=== PATIENT | male | born 1975 | race Two or more races ===

== ENCOUNTER 2024-06-03 15:15 | Inpatient (IN) | payer MEDICAID, SELFPAY ==
[2024-06-03] VITALS (8 sets, daily range): BP systolic 171–213; BP diastolic 96–126; PULSE 75–80; RESP 16–20; TEMP 36.8–37.7; O2SAT 91–97; BMI 34.9
--- NOTE | 2024-06-03 16:05 | XR_ITS ---
Examination: Abdomen sonogram, Limited Date and time of exam: June 03, 2024 1613 hrs. Indications: Epigastric pain nausea vomiting constipation beginning 2 days ago Technique: Real-time gant scale transabdominal sonographic images of the upper abdomen obtained. Findings: Multiple gallstones Abnormal thickening of the gallbladder wall 0.5 cm Common bile duct 0.6 cm Pancreatic head 3.2 cm Liver 19.1 cm fatty liver no focal liver lesions Normal hepatopedal portal venous flow Patent IVC Impression: Acute calculus cholecystitis pattern Enlarged common bile duct incompletely visualized Consider MRCP follow-up
--- NOTE | 2024-06-03 16:05 | XR_ITS ---
Examination: PA lateral chest 2 views Technique: Upright PA lateral chest 2 views Exam date and time: June 03, 2024 1631 hrs. Indications: Chest pain abdominal pain and sweating diaphoresis beginning 2 days ago. Findings: Normal heart size Ectatic thoracic aorta. No pneumonia or pulmonary edema Moderate thoracic spondylosis Impression: No active disease
--- NOTE | 2024-06-03 16:05 | XR_ITS ---
Examination: CT abdomen and pelvis without contrast. Coronal 3-D reconstructions. Sagittal 2-D reconstructions. Date and time of exam: June 03, 2024 1646 hrs. Indications: Onset epigastric pain beginning 2 days ago CTDI: vol (mGy): 11.7 DLP: (mGycm): 725 Technique: Axial images of the abdomen have been obtained, 3 mm slice thickness Intravenous contrast material has not been administered. Low dose protocols were performed. One or more of the following dose reduction techniques were used; automated exposure control, adjustment of the mA and/or KV according to patient size, use of iterative reconstruction technique. Findings: Diffuse fatty infiltration throughout the liver Gallstones, abnormal gallbladder wall thickening and edema Spleen is not enlarged No pancreatic or adrenal mass 2 mm soft calcification lower pole left kidney, coronal image 90 No hydronephrosis or ureteral calculi Aorta normal size Normal appendix No bowel obstruction Colonic diverticulosis, no diverticulitis There is rectal wall thickening up to 10 mm, axial image 227, clinical correlation advised Transverse prostate dimension 4.5 cm Intact urinary bladder Moderate disc narrowing posteriorly L5-S1 Impression: Recommend gallbladder sonography follow-up to confirm acute calculus cholecystitis 2 mm nonobstructing lower pole left renal calculus Rectal wall thickening up to 10 mm, consider proctitis, other etiologies not excluded, clinical correlation advised
--- NOTE | 2024-06-03 16:05 | EKG_ITS ---
[facility] Test Date: 2024-06-03 Pat Name: DEBBIE PAVON Department: Room: - Gender: Male [place]: : 1975 Requested By: Abrahan Smith (RAYNE) Order Number: [id number] Reading MD: Abrahan Smith (BEVEL OPERATOR) Measurements Intervals [place] Rate: 86 P: 4 SD: 193 QRS: -3 QRSD: 118 T: 25 QT: 387 QTc: 464 Interpretive Statements SINUS RHYTHM MODERATE VOLTAGE CRITERIA FOR LVH, CONSIDER NORMAL VARIANT [MEETS CRITERIA IN ONE OF: R(aVL), S(V1), R(V5), R(V5/V6)+S(V1)] INFERIOR MYOCARDIAL INFARCTION , PROBABLY OLD [40+ ms Q WAVE AND/OR ST/T ABNORMALITY IN II/aVF] No previous ECG available for comparison /store/S0/[id number].pdf
--- NOTE | 2024-06-03 16:06 | PD.EDRME ---
Rapid Medical Screening Exam RME Arrival date/time: 06/03/24 15:15 49-year-old male presents emergency department complaint of abdominal pain and constipation Chief Complaint: Abdominal Pain Time Seen by Provider: 06/03/24 15:58 Vital signs: Vital Signs Temperature 98.2 F 06/03/24 15:51 Pulse Rate 77 06/03/24 15:51 Respiratory Rate 20 06/03/24 15:51 Blood Pressure 171/96 H 06/03/24 15:51 Pulse Oximetry (%) 97 06/03/24 15:51 Oxygen Delivery Method Room Air 06/03/24 15:51
[2024-06-03] MEDS: DOCUSATE SOD 100 MG CAPSULE PO (16:45)
[2024-06-03] MEDS: HYDROcodone/APAP 5/325 TABLET 1 TAB PO (16:45)
[2024-06-03 16:57] LABS: Basophils % (Auto) 0 % (0-2.5); Eosinophils % (Auto) 0 % (0-10); Hematocrit 42.7 % (41.0-53.0); Hemoglobin 14.7 g/dL (13.5-16.0); Immature Granulocytes % (Auto) 0 % (0-0); Immature Granulocytes Auto 0.07 Thou/mm3 (0.00-0.00); Lymphocytes # (Auto) 1.9 Thou/mm3 (1.0-4.8); Lymphocytes % (Auto) 11 % (10-50); Mean Corpuscular HGB Conc 34.4 g/dl (31.0-37.0); Mean Corpuscular Hemoglobin 27.7 pg (25.0-35.0); Mean Corpuscular Volume 80 fL (80-100); Monocytes % (Auto) 6 % (0-12); Neutrophils # (Auto) 14.1 Thou/mm3 (1.8-7.7); Neutrophils % (Auto) 82 % (37-80); Nucleated Red Blood Cell % 0 /100 WBC (0); Platelet Count 341 Thou/mm3 (140-440); RDW Standard Deviation 37.4 fL (35.1-43.9); Red Blood Count 5.31 Miln/mm3 (4.50-5.90); White Blood Count 17.2 Thou/mm3 (3.8-10.6)
[2024-06-03 17:16] LABS: Alanine Aminotransferase 34 U/L (10-49); Albumin, Serum 5.1 gm/dL (3.5-5.0); Albumin/Globulin Ratio 1.6 (1.2-2.2); Alkaline Phosphatase 137 U/L (46-116); Anion Gap 9 (7-16); Aspartate Amino Transferase 10 U/L (0-34); BUN/Creatinine Ratio 9 Ratio (12-20); Bilirubin,Total 0.7 mg/dL (0.3-1.2); Blood Urea Nitrogen 7 mg/dL (9-23); Carbon Dioxide 29.6 mMol/L (20.0-31.0); Chloride 96 mMol/L (98-107); Creatinine (Component) 0.8 mg/dL (0.6-1.3); Estimated Creatinine Clearance 130.8 mL/min (>60); Globulin 3.1 gm/dL (2.3-3.5); Glucose 145 mg/dL (74-106); Lipase 24 U/L (12-53); Osmolality,Calculated 271 (275-295); Potassium 3.7 mMol/L (3.4-5.1); Sodium 135 mMol/L (136-145); Total Protein 8.2 gm/dL (5.7-8.2); Troponin I < 0.020 ng/mL (0.0-0.045); eGFR > 60 See Note
[2024-06-03 17:17] LABS: Collection Type, Urine Clean Catch; Squamous Epithelial Cell,Urine 0 /hpf (0-5)
[2024-06-03 17:23] LABS: Bilirubin,Urine Negative (Negative); Blood,Urine Negative (Negative); Clarity,Urine Clear (Clear/Hazy); Color,Urine Lt-Yellow (Lt Yel-Yel); Glucose, Urine Negative (Negative); Ketones,Urine Trace (Negative); Leukocyte Esterase,Urine Negative (Negative); Nitrite,Urine Negative (Negative); Protein,Urine Trace (Neg - Trace); RBC,Urine 1 /hpf (0-3); Specific Gravity,Urine 1.021 (1.001-1.035); Urobilinogen,Urine Negative mg/dL (0.0-1.0); WBC,Urine 2 /hpf (0-5)
[2024-06-03 17:30] LABS: Amphetamine/Methamp Scrn,U Negative (Negative); Barbiturate Screen,Urine Negative (Negative); Benzodiazepines Screen,Urine Negative (Negative); Benzoylecgonine Screen, Ur Negative (Negative); Fentanyl Screen,Urine Negative (Negative); Opiate Screen,Urine Negative (Negative); THC Screen,Urine Negative (Negative)
--- NOTE | 2024-06-03 20:13 | PD.EDABDPN ---
ED Abdominal Pain RME/HPI General Chief Complaint: Abdominal Pain Stated complaint: ABD PAIN/CONSTIPATION/SWEATING x 2 DAYS Time seen by provider: 06/03/24 15:58 Arrival date/time: 06/03/24 15:15 Limitations: no limitations RME / HPI RME / HPI narrative: 06/03/24 15:15 49-year-old male presents emergency department complaint of abdominal pain and constipation -------- Dr. Amor'beto Main ED Evaluation: 49yo male presents to the ED for a chief complaint of right-sided abdominal pain. Patient states his pain radiates to his back. Patient states he ate last night at 2030 and he started having abdominal pain after. He reports associated nausea. Denies any vomiting, diarrhea, fever, chills or any other associated symptoms. No known allergies. Related Data Previous Rx's ?Medication ?Instructions ?Recorded hydralazine 25 mg tablet 25 mg PO BID #60 tabs 04/19/21 lisinopril 40 mg tablet 40 mg PO QDAY #30 tabs 04/19/21 metformin 500 mg tablet 1,000 mg (2 x 500 mg) PO BID #60 04/19/21 tabs omeprazole 20 mg tablet,delayed 20 mg PO QDAY #30 tabs 04/19/21 release Allergies Allergy/AdvReac Type Severity Reaction Status Date / Time No Known Allergies Allergy Verified 06/03/24 15:19 Review of Systems Review of Systems Systems Reviewed: All systems reviewed, normal except as documented Past Medical History Past Medical History CARDIAC: Negative Cardiac Disorders or Congestive Heart Failure RESPIRATORY: Negative Chronic Obstructive Pulmonary Disease (COPD) or Asthma GENITOURINARY: Negative Renal Disease ENDOCRINE: Negative Diabetes Mellitus Type 1 or Diabetes Mellitus Type 2 HEMATOLOGIC: Negative Sickle Cell Disease Social History SMOKING STATUS: Never smoker SUBSTANCE USE: does not use ED Exam General Limitations: Present no limitations General appearance: Present alert and in no apparent distress Head Head exam: Present atraumatic Eye Eye exam: Present normal appearance, PERRL and EOMI ENT ENT exam: Present normal exam, normal oropharynx and mucous membranes moist Neck Neck exam: Present normal inspection, full ROM and trachea midline Chest Chest inspection: Present normal inspection and symmetric chest wall rise Respiratory Respiratory exam: Present normal lung sounds bilaterally Cardiovascular Cardiovascular exam: Present regular rate, normal rhythm and normal heart sounds Abdominal Exam Abdominal exam: Present soft and normal bowel sounds; Absent guarding, rebound or Harris's sign Extremities Exam Extremities exam: Present normal inspection and full ROM Back Exam Back exam: Present normal inspection and full ROM Neurological Exam Neurological exam: Present alert, oriented X3 and CN II-XII intact Psychiatric Psychiatric exam: Present normal affect and normal mood Skin Skin exam: Present warm, dry, intact and normal color Course Course Course Narrative: Placed in bed [address] Hardy. Zosyn is started. Quality Measures none Orders Category Date Time Status COVID-19 Screening Questionnaire NOW Care 06/03/24 20:41 Active Decision to Admit X1 Care 06/03/24 20:40 Active EKG (ED ONLY) *Do not use* NOW Care 06/03/24 16:[address] abdomen pelvis wo con Stat Exams 06/03/24 16:05 Completed EKG (ED Only) Stat Exams 06/03/24 16:05 Draft US gall bladder Stat Exams 06/03/24 16:05 Completed XR chest 2V Stat Exams 06/03/24 16:05 Completed CBC Stat Lab 06/03/24 16:49 Completed Comprehensive Metabolic Panel Stat Lab 06/03/24 16:49 Completed Drug Screen,Urine Stat Lab 06/03/24 17:00 Completed Lipase Stat Lab 06/03/24 16:49 Completed Troponin I Stat Lab 06/03/24 16:49 Completed Urinalysis Stat Lab 06/03/24 17:00 Completed Docusate Sod [Colace] Med 06/03/24 16:05 Discontinued 100 mg PO X1 ONE HYDROcodone*/APAP 5/325 [[place] 5/325] Med 06/03/24 16:05 Discontinued 1 tab PO X1 ONE Morphine Inj Med 06/03/24 20:41 Discontinued 4 mg IVP X1 ONE Ondansetron Inj [Zofran Inj] Med 06/03/24 20:41 Discontinued 4 mg IV X1 ONE Piper/Tazo Inj [Zosyn Inj] 3.375 gm Med 06/03/24 20:40 Pending Sodium Chloride 0.9% (P) [Ns 0.9% (P)] 50 ml IV Q6HR Piper/Tazo Inj [Zosyn Inj] 3.375 gm Med 06/03/24 20:45 Discontinued Sodium Chloride 0.9% (P) [Ns 0.9% (P)] 50 ml IV X1 Sodium Chloride 0.9% 1000 ml [Ns] 1,000 ml Med 06/03/24 20:40 Discontinued IV 999 mls/hr Reevaluation(s) Reevaluation #1: Patient with improved pain. Patient states he is not a diabetic. Time: 21:45 Vital Signs Vital signs: Vital Signs Temperature 98.2 F 06/03/24 15:51 Pulse Rate 77 06/03/24 15:51 Respiratory Rate 20 06/03/24 15:51 Blood Pressure 171/96 H 06/03/24 15:51 Pulse Oximetry (%) 97 06/03/24 15:51 Oxygen Delivery Method Room Air 06/03/24 15:51 Abdominal Pain MDM MDM Narrative MDM Narrative:: 49-year-old man presenting with history of cholelithiasis back in 2020 presenting with 3 days of abdominal pain. No evidence of cholangitis. Patient data External records reviewed:: [facility] previous records (Per chart review, patient was seen here on 04/19/21 for epigastric pain.) Clinical information provided by:: patient Social determinants that could affect healthcare access:: none Patient has the following chronic illnesses:: none How is presenting disease/condition affected by chronic disease/condition?: no chronic disease Evaluation data The following diagnostics were reviewed and interpreted by me:: lab results, radiology exam(s) and EKG tracing(s) Lab and/or radiology exams considered but not ordered:: none Interpretation Summary: WBC count is elevated at 17.2, CMP is normal, troponin is normal, Lipase is normal, UA is unremarkab EKG 1611, 86, moderate lvh, old q wave lead iii, qtc 387, possible old infarct, same as 2020 Medications / Prescriptions Medications or Prescriptions considered but not ordered:: none Medication administrations:: Medication Administration History Piperacillin Sod/Tazobactam (Sod 3.375 gm/ Sodium Chloride) 50 mls @ 100 mls/hr IV Q6HR JOSE Stop: 06/10/24 20:39 Sodium Chloride (Ns) 1,000 mls @ 100 mls/hr IV .Q10H ONE Stop: 06/04/24 06:59 Morphine Sulfate (Morphine Sulf Inj 10 Mg/Ml Vial) 5 mg IM Q4HR PRN PRN Reason: PAIN SCALE 4-6 (Moderate Stop: 06/08/24 20:48 Ondansetron HCl (Ondansetron Inj 2 Mg/Ml Inj 2 Ml) 4 mg IV Q4HR PRN PRN Reason: NAUSEA OR VOMITING Stop: 07/03/24 20:48 Discontinued Medications Hydrocodone Bitart/Acetaminophen (Hydrocodone/Apap 5/325 Tablet) 1 tab PO X1 ONE Stop: 06/03/24 16:06 Last Admin: 06/03/24 16:45 Dose: 1 tab Documented By: Docusate Sodium (Docusate Sod 100 Mg Capsule) 100 mg PO X1 ONE; Protocol Stop: 06/03/24 16:06 Last Admin: 06/03/24 16:45 Dose: 100 mg Documented By: Sodium Chloride (Ns) 1,000 mls @ 999 mls/hr IV .Q1H1M ONE Stop: 06/03/24 21:40 Piperacillin Sod/Tazobactam (Sod 3.375 gm/ Sodium Chloride) 50 mls @ 100 mls/hr IV X1 ONE Stop: 06/03/24 21:14 Morphine Sulfate (Morphine Sulf Inj 10 Mg/Ml Vial) 4 mg IVP X1 ONE Stop: 06/03/24 20:42 Ondansetron HCl (Ondansetron Inj 2 Mg/Ml Inj 2 Ml) 4 mg IV X1 ONE; Protocol Stop: 06/03/24 20:42 see above Consultations Consultation(s) initiated? (list below): Yes Consultation #1 (Physician, Specialty, Details): Discussed case with [Dr. Hardy] from [general surgery] regarding [consultation]. Discussed patients ED course, exam findings, labs, and radiology results. States the patient's gallbladder needs to be removed and agrees to admit the patient. Time: 20:40 Diagnosis Differential diagnosis abdominal pain: acute appendicitis and other (cholelithiasis, cholecystitis) Most likely diagnosis given after review of the tests above:: see below Admission Indicated Admission indicated?: indicated Admission Request Was there a request for admission?: Yes Admission Attestation Admission request attestation: Discussed case with [] from Hospitalist service regarding admission. Discussed patients ED course, exam findings, labs, and radiology results. The Hospitalist [agrees,declines] to accept the patient for admission. Disposition Plan Disposition Plan: Admit Discharge Plan Plan Patient Disposition: HOME (Self Care) Patient condition on transfer: Stable Problem List Clinical Impression: Acute cholecystitis
--- NOTE | 2024-06-03 20:54 | PD.SURHP ---
HPI Date of Admission 06/03/2024 Chief Complaint Chief Complaint: Patient is admitted with the complaints of acute calculus cholecystitis HPI History of present was revealed that the patient was in his usual health until 3 days ago when he started having pain in the epigastric region radiating to the back. Patient had no vomiting but he was nauseated and could not eat well. He has had a similar pain 3 years ago and came to the emergency room and was told that he had gastritis. Patient gives history of gallstones and his mother. Patient denies any history of fever or chills. Patient's past medical history consist of hypertension and obesity Past Medical History Past Medical History CARDIAC: Negative Cardiac Disorders or Congestive Heart Failure RESPIRATORY: Negative Chronic Obstructive Pulmonary Disease (COPD) or Asthma GENITOURINARY: Negative Renal Disease ENDOCRINE: Negative Diabetes Mellitus Type 1 or Diabetes Mellitus Type 2 HEMATOLOGIC: Negative Sickle Cell Disease Social History SMOKING STATUS: Never smoker SUBSTANCE USE: does not use Meds Home Medications and Allergies Allergies Allergy/AdvReac Type Severity Reaction Status Date / Time No Known Allergies Allergy Verified 06/03/24 15:19 Exam Vital Signs Temp Pulse Resp BP Pulse Ox O2 Del Method 98.2 F 77 20 171/96 H 97 Room Air 06/03/24 15:51 06/03/24 15:51 06/03/24 15:51 06/03/24 15:51 06/03/24 15:51 06/03/24 15:51 Narrative Exam Physical examination revealed an obese 49-year-old male who is 5 foot 8 inches tall weighing 230 pounds with BMI of 35 patient's blood pressure was high at 171/96 Routine Abdominal Exam Comments: Examination abdomen showed definite tenderness in the epigastric region and some tenderness in the right upper quadrant with a positive Harris sign Results Results: Laboratory Laboratory Narrative: Patient's laboratory workup showed leukocytosis of 17,000 with a shift to the left Results: Imaging Imaging narrative: Ultrasound showed cholelithiasis with slight thickening of the gallbladder wall Assessment & Plan Additional Assessment Additional comments: Impression acute calculus cholecystitis Hypertension Morbid obesity Plan Plan: Patient will require surgical intervention because of this ongoing pain for 3 days. At the present time patient has all the telltale signs of acute cholecystitis. He will be admitted and started on antibiotics Zosyn 3.375 every 8 hours. Surgery will be scheduled tomorrow. This will be done laparoscopically. This was explained to the patient and his and they are agreeable Quality Measures Quality Measures none
--- NOTE | 2024-06-03 21:24 | PC.NURSE ---
NO BLOOD CULTURES ORDERS PER DR. ROMO.
[2024-06-03] MEDS: SODIUM CHLORIDE 0.9% 1000 ML 1,000 ML 999 ML IV (22:08)
[2024-06-03] MEDS: ONDANSETRON INJ 2 MG/ML INJ 2 ML 4 MG IV (22:12)
[2024-06-03] MEDS: PIPER/TAZO INJ 3.375 GM in SODIUM CHLORIDE 0.9% (P) 50 ML IV (22:14)
[2024-06-03] MEDS: MORPHINE SULF INJ 10 MG/ML VIAL 4 MG IVP (22:14)
--- NOTE | 2024-06-03 22:34 | PC.NURSE ---
Dr. French notified via telephone regarding blood pressure of 201/116, per Dr. French to contact hospitalist for management of blood pressure. Dr. Gunter at bedside and spoke with patient, states will into blood pressure medication orders.
--- NOTE | 2024-06-03 22:41 | PD.RESCONSUL ---
HPI Data of Consult Requesting Physician: Onur French MD Admitting Provider: Onur French MD Attending Provider: Onur French MD Primary Care Provider: Simba Landrum MD Consult Narrative Reason for consult: Hypertensive urgency History of present illness: Patient is a 49-year-old Chilean-speaking male with past medical history of hypertension who presented to the ED on 06/03/2024 with 3 days of epigastric and right upper quadrant pain radiating to the back with associated nausea. ED workup revealed leukocytosis of 17.2 and gallbladder US showed acute calculus cholecystitis pattern. Patient was admitted by General Surgery for cholecystectomy. While in ED patient's BP was noted to be elevated in the 200s/100s. Patient had not received any antihypertensives thus far. Hospitalist team was consulted for management of hypertensive urgency. Patient endorses mild headache however notes he has not eaten all day. Otherwise denies any chest pain, shortness of breath, weakness, or vision changes. The patient endorses a history of hypertension and previously was on antihypertensives however has not been taking any medications for at least 3 months. He denies any other medical problems, denies history of diabetes. Review of Systems Review of systems otherwise negative except what is mentioned above. cc:: cc: Onur French MD Past Medical History Past Medical History Comments PMH COMMENT: Past Medical History: Hypertension Family History: Positive for gallstones in mother Surgical History: Right index finger distal phalanx amputation Social History: Denies history of smoking, occasional alcohol use, denies recreational drug use Current Medications: None Allergies: No known drug allergies Exam Vital Signs Temp Pulse Resp BP Pulse Ox O2 Del Method 98.2 F 76 16 201/116 H 97 Room Air 06/03/24 15:51 06/03/24 22:26 06/03/24 22:26 06/03/24 22:26 06/03/24 22:26 06/03/24 22:26 Narrative Exam Physical Exam General: Awake and in no acute distress. Conversational and non-toxic appearing. HEENT: Normocephalic, atraumatic, mucous membranes moist. Heart: Regular rate and rhythm, no murmurs. Lungs: Clear to auscultation with no wheezing or crackles. Abdomen: Soft, nondistended, positive for right upper quadrant tenderness, positive bowel sounds. ?No guarding or rebound tenderness. Neurologic: Alert and oriented x3, no gross neurological deficit, and patient able to move all 4 extremities. Extremities: No edema. Skin: No rash or ecchymoses. Results Labs 06/03/24 16:49 06/03/24 16:49 Labs: Short CBC 06/03/24 Range/Units 16:49 WBC 17.2 H (3.8-10.6) Thou/mm3 Hgb 14.7 (13.5-16.0) g/dL Hct 42.7 (41.0-53.0) % Plt Count 341 (140-440) Thou/mm3 BMP 06/03/24 16:49 Sodium 135 L Potassium 3.7 Chloride 96 L Carbon Dioxide 29.6 BUN 7 L Creatinine 0.8 Glucose 145 H Calcium 10.0 Cardiac Enzymes 06/03/24 Range/Units 16:49 Troponin I < 0.020 (0.0-0.045) ng/mL Liver Function 06/03/24 Range/Units 16:49 Total Bilirubin 0.7 (0.3-1.2) mg/dL AST 10 (0-34) U/L ALT 34 (10-49) U/L Alkaline Phosphatase 137 H (46-116) U/L Albumin 5.1 H (3.5-5.0) gm/dL Urine 06/03/24 Range/Units 17:00 Urine Color Lt-Yellow (Lt Yel-Yel) Urine Clarity Clear (Clear/Hazy) Urine pH 7.0 (5.0-7.0) Ur Specific [place] 1.021 (1.001-1.035) Urine Protein Trace (Neg - Trace) Urine Glucose (UA) Negative (Negative) Quality Measures Quality Measures none Medications Home Medications and Allergies Home Medications ?Medication ?Instructions ?Recorded ?Confirmed ?Type No Known Home Medications 06/04/24 06/04/24 History Allergies Allergy/AdvReac Type Severity Reaction Status Date / Time No Known Allergies Allergy Verified 06/03/24 15:19 Visit Medications Hydralazine HCl (Hydralazine Hcl 25 Mg Tablet) 25 mg PO BID JOSE Stop: 07/03/24 22:44 Piperacillin Sod/Tazobactam (Sod 3.375 gm/ Sodium Chloride) 50 mls @ 100 mls/hr IV Q6HR JOSE Stop: 06/10/24 20:39 Sodium Chloride (Ns) 1,000 mls @ 100 mls/hr IV .Q10H ONE Stop: 06/04/24 06:59 Lisinopril (Lisinopril 20 Mg Tablet) 40 mg PO QDAY JOSE Stop: 07/03/24 22:39 Morphine Sulfate (Morphine Sulf Inj 10 Mg/Ml Vial) 5 mg IM Q4HR PRN PRN Reason: PAIN SCALE 4-6 (Moderate Stop: 06/08/24 20:48 Ondansetron HCl (Ondansetron Inj 2 Mg/Ml Inj 2 Ml) 4 mg IV Q4HR PRN PRN Reason: NAUSEA OR VOMITING Stop: 07/03/24 20:48 Discontinued Medications Hydrocodone Bitart/Acetaminophen (Hydrocodone/Apap 5/325 Tablet) 1 tab PO X1 ONE Stop: 06/03/24 16:06 Last Admin: 06/03/24 16:45 Dose: 1 tab Docusate Sodium (Docusate Sod 100 Mg Capsule) 100 mg PO X1 ONE; Protocol Stop: 06/03/24 16:06 Last Admin: 06/03/24 16:45 Dose: 100 mg Sodium Chloride (Ns) 1,000 mls @ 999 mls/hr IV .Q1H1M ONE Stop: 06/03/24 21:40 Last Admin: 06/03/24 22:08 Dose: 999 mls/hr Piperacillin Sod/Tazobactam (Sod 3.375 gm/ Sodium Chloride) 50 mls @ 100 mls/hr IV X1 ONE Stop: 06/03/24 21:14 Last Admin: 06/03/24 22:14 Dose: 100 mls/hr Morphine Sulfate (Morphine Sulf Inj 10 Mg/Ml Vial) 4 mg IVP X1 ONE Stop: 06/03/24 20:42 Last Admin: 06/03/24 22:14 Dose: 4 mg Ondansetron HCl (Ondansetron Inj 2 Mg/Ml Inj 2 Ml) 4 mg IV X1 ONE; Protocol Stop: 06/03/24 20:42 Last Admin: 06/03/24 22:12 Dose: 4 mg Assessment & Plan Plan 49-year-old Chilean-speaking male with past medical history of hypertension who was admitted by General Surgery for cholecystectomy. Hospitalist team was consulted for management of hypertensive urgency. #Hypertensive urgency #History of essential hypertension On admission patient had BP ranging 171/96 to 213/122. Patient with history of hypertension however endorses not taking meds for the last 3 months. Does not know the names of prior meds. Patient is most likely hypertensive secondary to pain and also has longstanding untreated hypertension, likely is accustomed to high BPs at home. Previous documentation shows history of prescriptions for lisinopril and hydralazine. Will restart oral antihypertensives. -Started amlodipine 10 mg qday -Started lisinopril 40 mg qday -Started hydralazine 25 mg BID -Hydralazine 10 mg IV prn -Pain control per General Surgery Patient plan of care was discussed with the attending physician, Dr. Gunter. Isa Christianson, PGY-2 Attending Provider Attestation/Addendum I discussed with and supervised the resident physician who took care of this patient. I agree with the assessment and plan as above. The patient will be comanaged by the hospitalist group for uncontrolled blood pressure. Patient denies chest pain or shortness of breath no dizziness or lightheadedness. He was initially admitted by Dr. Hardy for surgery.
[2024-06-03] MEDS: Lisinopril 20 MG TABLET 40 MG PO (23:05)
[2024-06-03] MEDS: hydrALAZINE HCL 25 MG TABLET PO (23:05)
[2024-06-03] MEDS: SODIUM CHLORIDE 0.9% 1000 ML 1,000 ML 100 ML IV (23:09)
[2024-06-03 23:39] LABS: Alanine Aminotransferase 33 U/L (10-49); Albumin, Serum 5.2 gm/dL (3.5-5.0); Alkaline Phosphatase 133 U/L (46-116); Aspartate Amino Transferase 13 U/L (0-34); Bilirubin,Direct 0.2 mg/dL (0.0-0.3); Bilirubin,Total 0.7 mg/dL (0.3-1.2); Total Protein 8.2 gm/dL (5.7-8.2)
[2024-06-03] MEDS: hydrALAZINE INJ 20 MG/ML VIAL 10 MG IV (23:54)
[2024-06-04] VITALS (14 sets, daily range): BP systolic 92–177; BP diastolic 62–101; PULSE 86–98; RESP 15–20; TEMP 36.1–37.5; O2SAT 91–98; BMI 35.0
--- NOTE | 2024-06-04 01:14 | PC.NURSE ---
seen and examined by Dr. Christianson, with Cari moody as assistant wrestling coach. Tequila() at bedside.
[2024-06-04] MEDS: MORPHINE SULF INJ 10 MG/ML VIAL 5 MG IVP (01:43)
[2024-06-04] MEDS: SODIUM CHLORIDE 0.9% 1000 ML 1,000 ML 100 ML IV ×2 (02:58→17:59)
[2024-06-04 05:57] LABS: Basophils # (Auto) 0.1 Thou/mm3 (0.0-0.2); Basophils % (Auto) 1 % (0-2.5); Eosinophils # (Auto) 0.1 Thou/mm3 (0.0-0.5); Eosinophils % (Auto) 0 % (0-10); Hemoglobin 13.3 g/dL (13.5-16.0); Immature Granulocytes % (Auto) 0 % (0-0); Immature Granulocytes Auto 0.06 Thou/mm3 (0.00-0.00); Lymphocytes # (Auto) 2.7 Thou/mm3 (1.0-4.8); Lymphocytes % (Auto) 17 % (10-50); Mean Corpuscular HGB Conc 34.1 g/dl (31.0-37.0); Mean Corpuscular Hemoglobin 27.8 pg (25.0-35.0); Mean Corpuscular Volume 82 fL (80-100); Monocytes # (Auto) 1.5 Thou/mm3 (0.0-0.8); Monocytes % (Auto) 10 % (0-12); Neutrophils # (Auto) 11.2 Thou/mm3 (1.8-7.7); Neutrophils % (Auto) 72 % (37-80); Nucleated Red Blood Cell % 0 /100 WBC (0); Platelet Count 294 Thou/mm3 (140-440); RDW Standard Deviation 38.7 fL (35.1-43.9); Red Blood Count 4.78 Miln/mm3 (4.50-5.90); White Blood Count 15.5 Thou/mm3 (3.8-10.6)
[2024-06-04] MEDS: PIPER/TAZO INJ 3.375 GM in SODIUM CHLORIDE 0.9% (P) 50 ML IV (06:24)
[2024-06-04] MEDS: amLODIPine BESYLATE 5 MG TABLET 10 MG PO (06:52)
[2024-06-04] MEDS: Lisinopril 20 MG TABLET 40 MG PO (08:41)
[2024-06-04] MEDS: hydrALAZINE HCL 25 MG TABLET PO ×2 (08:41→21:06)
--- NOTE | 2024-06-04 11:52 | PC.SS ---
Merlin Bhatia is 49 year old male. SS met with patient at bedside to complete initial assessment and to discuss discharge planning. Patient appeared to be alert and oriented. Patient confirmed demographic information she lives with . Patient reports his , Tequila Hernandez is surrogate decision maker [phone] . Pt states prior to hospitalization he is able to complete all ADL?s independently. Pts PCP is Dr. Simba Landrum. Pharmacy of choice is [facility]. Patient will return home, family will provide transportation. DC Plan: Home Next of Kin: , Tequila Hernandez PCP: Dr. Simba Landrum
--- NOTE | 2024-06-04 12:05 | ESPR_ITS ---
<Statement entered by Jazmine Tran MD - 06/04/24 13:51> I discussed with and supervised my co-resident involved in the care of this patient. I agree with the assessment and plan as documented above. Medicine team consulted for blood pressure management. Patient seen and examined at bedside. Going for surgery today. Amloidpine 10mg, hydralazine 25mg, lisinopril 40mg with hydralazine iv prn. Pain control per primary Jazmine Tran MD PGY-3 Documentation for date of: 06/04/24 Subjective Subjective Interval history: Alfonso Bhatia is a 49-year-old Danish-speaking male with a PMHx of hypertension who presented to the ED with 3 days of epigastric and RUQ pain radiating to the back with associated nausea. ED workup revealed leukocytosis of 17.2 and gallbladder US showed acute calculus cholecystitis pattern. Admitted by General Surgery for cholecystectomy and consulted internal medicine for management of hypertensive urgency. In ED, BP was 200s/100s and did not receive antihypertensives thus far. Hospitalist team consulted for management of hypertensive urgency. Denies any CP, SOB, weakness, or vision changes. The patient endorses a history of hypertension and previously was on antihypertensives but has not been taking any medications for at least 3 months. 06/04: No acute overnight events. Patient seen and examined at bedside with family present. Continues to deny any symptoms, including chest pain, vision changes, lightheadedness. Currently waiting to have procedure planned for today, and blood pressure improved on current regimen. Exam Vital Signs Temp Pulse Resp BP Pulse Ox O2 Del Method 98.9 F 95 18 155/95 H 92 L Room Air 06/04/24 08:00 06/04/24 08:41 06/04/24 08:00 06/04/24 08:41 06/04/24 08:00 06/04/24 08:00 Narrative Exam General: Awake and in no acute distress. Conversational and non-toxic appearing. HEENT: Normocephalic, atraumatic, mucous membranes moist. Heart: Regular rate and rhythm, no murmurs. Lungs: Clear to auscultation with no wheezing or crackles. Abdomen: Soft, nondistended, positive for right upper quadrant tenderness, positive bowel sounds. ?No guarding or rebound tenderness. Neurologic: Alert and oriented x3, no gross neurological deficit, and patient able to move all 4 extremities. Extremities: No edema. Skin: No rash or ecchymoses. Objective Labs 06/04/24 05:24 06/03/24 16:49 Labs: Laboratory Results - last 24 hr 06/03/24 06/03/24 06/03/24 16:49 17:00 21:09 WBC 17.2 H RBC 5.31 Hgb 14.7 Hct 42.7 MCV 80 MCH 27.7 MCHC 34.4 RDW Std Deviation 37.4 Plt Count 341 Neut % (Auto) 82 H Lymph % (Auto) 11 [place] % (Auto) 6 Eos % (Auto) 0 Baso % (Auto) 0 Neut # (Auto) 14.1 H Lymph # (Auto) 1.9 [place] # (Auto) 1.0 H Eos # (Auto) 0.0 Baso # (Auto) 0.0 Immature Gran # (Auto) 0.07 H Absolute Nucleated RBC 0.00 Immature Gran % 0 Nucleated RBC % 0 Sodium 135 L Potassium 3.7 Chloride 96 L Carbon Dioxide 29.6 Anion Gap 9 BUN 7 L Creatinine 0.8 Estim Creat Clear Calc 130.8 eGFR > 60 BUN/Creatinine Ratio 9 L Glucose 145 H Calculated Osmolality 271 L Calcium 10.0 Corrected Calcium 10.0 Total Bilirubin 0.7 0.7 Direct Bilirubin 0.2 AST 10 13 ALT 34 33 Alkaline Phosphatase 137 H 133 H Troponin I < 0.020 Total Protein 8.2 8.2 Albumin 5.1 H 5.2 H Globulin 3.1 Albumin/Globulin Ratio 1.6 Lipase 24 Ur Collection Type Clean Catch Urine Color Lt-Yellow Urine Clarity Clear Urine pH 7.0 Ur Specific [place] 1.021 Urine Protein Trace Urine Glucose (UA) Negative Urine Ketones Trace Urine Blood Negative Urine Nitrite Negative Urine Bilirubin Negative Urine Urobilinogen (Auto) Negative Ur Leukocyte Esterase Negative Urine RBC 1 Urine WBC 2 Ur Squamous Epith Cells 0 Urine Bacteria None Urine Opiates Screen Negative Urine Fentanyl Screen Negative Ur Barbiturates Screen Negative U Amphetamin/Meth Scrn Negative U Benzodiazepines Scrn Negative U Cocaine Metab Screen Negative U Marijuana (THC) Screen Negative 06/04/24 05:24 WBC 15.5 H RBC 4.78 Hgb 13.3 L Hct 39.0 L MCV 82 MCH 27.8 MCHC 34.1 RDW Std Deviation 38.7 Plt Count 294 D Neut % (Auto) 72 Lymph % (Auto) 17 [place] % (Auto) 10 Eos % (Auto) 0 Baso % (Auto) 1 Neut # (Auto) 11.2 H Lymph # (Auto) 2.7 [place] # (Auto) 1.5 H Eos # (Auto) 0.1 Baso # (Auto) 0.1 Immature Gran # (Auto) 0.06 H Absolute Nucleated RBC 0.00 Immature Gran % 0 Nucleated RBC % 0 Sodium Potassium Chloride Carbon Dioxide Anion Gap BUN Creatinine Estim Creat Clear Calc eGFR BUN/Creatinine Ratio Glucose Calculated Osmolality Calcium Corrected Calcium Total Bilirubin Direct Bilirubin AST ALT Alkaline Phosphatase Troponin I Total Protein Albumin Globulin Albumin/Globulin Ratio Lipase Ur Collection Type Urine Color Urine Clarity Urine pH Ur Specific [place] Urine Protein Urine Glucose (UA) Urine Ketones Urine Blood Urine Nitrite Urine Bilirubin Urine Urobilinogen (Auto) Ur Leukocyte Esterase Urine RBC Urine WBC Ur Squamous Epith Cells Urine Bacteria Urine Opiates Screen Urine Fentanyl Screen Ur Barbiturates Screen U Amphetamin/Meth Scrn U Benzodiazepines Scrn U Cocaine Metab Screen U Marijuana (THC) Screen Quality Measures Quality Measures none Assessment & Plan Assessment Current Active Medications: Generic Name Dose Route Start Last Admin Trade Name Freq PRN Reason Stop Dose Admin Amlodipine Besylate 10 mg 06/04/24 06:45 06/04/24 06:52 Amlodipine Besylate 5 Mg Tablet PO 07/04/24 06:44 10 mg QDAY JOSE Administration Hydralazine HCl 25 mg 06/03/24 22:45 06/04/24 08:41 Hydralazine Hcl 25 Mg Tablet PO 07/03/24 22:44 25 mg BID JOSE Administration Hydralazine HCl 10 mg 06/04/24 10:28 Hydralazine Inj 20 Mg/Ml Vial IV 07/04/24 10:29 Q6H PRN SBP>170/95 Piperacillin/Tazobactam/Dextrose 50 mls @ 12.5 mls/hr 06/04/24 14:00 Zosyn IV 06/11/24 05:59 Q8HR JOSE Lisinopril 40 mg 06/03/24 22:40 06/04/24 08:41 Lisinopril 20 Mg Tablet PO 07/03/24 22:39 40 mg QDAY JOSE Administration Morphine Sulfate 5 mg 06/04/24 01:08 06/04/24 01:43 Morphine Sulf Inj 10 Mg/Ml Vial IVP 06/08/24 20:48 5 mg Q4HR PRN Administration PAIN SCALE 4-6 (Moderate Ondansetron HCl 4 mg 06/03/24 20:49 Ondansetron Inj 2 Mg/Ml Inj 2 Ml IV 07/03/24 20:48 Q4HR PRN NAUSEA OR VOMITING Plan Alfonso Bhatia is a 49-year-old Danish-speaking male with a PMHx of hypertension who presented to the ED with 3 days of epigastric and RUQ pain radiating to the back with associated nausea. ED workup revealed leukocytosis of 17.2 and gallbladder US showed acute calculus cholecystitis pattern. Admitted by General Surgery for cholecystectomy and consulted internal medicine for management of hypertensive urgency. #Hypertensive urgency #History of essential hypertension On admission BP range 171/96 to 213/122. Does not know the names of prior meds. Likely hypertensive due to pain with longstanding untreated hypertension and accustomed to high BPs at home. Previous documentation shows history of prescriptions for lisinopril and hydralazine. ? Amlodipine 10 mg p.o. daily ? Hydralazine 25 mg p.o. twice daily ? Hydralazine 10 mg IV as needed ? Lisinopril 40 mg p.o. daily ? Pain control per general surgery: Morphine 5 mg IV every 4 hours Hospital management: Disposition: Pending cholecystectomy Fluids: not indicated Diet: NPO Lines: peripheral CODE STATUS: full code ----- Plan discussed with attending physician Dr. Andrew and senior resident physician Dr. Chelsea Hardy MD PGY-1 Internal Medicine Attending Provider Attestation/Addendum I attest that I was physically present for the evaluation, physical examination, lab and imaging review of the patient with the residents. I discussed the case with the residents and agree with the findings and plans of care as documented above. Patient is a 49 years old male with past medical history of hypertension presented to ED with complaint of epigastric and right upper quadrant pain. Found to have cholecystitis and admitted under general surgery care for cholecystectomy. Patient was found to have hypertensive urgency for which medicine team was consulted. Patient had a blood pressure on admission up to 213/122. He was started on amlodipine 10 mg, hydralazine 25 mg twice daily, lisinopril 40 mg daily and IV hydralazine as needed. Blood pressure fairly controlled this morning. Patient undergoing surgery today, we will continue to reevaluate patient after the surgery and adjust antihypertensives as needed. Mary Andrew MD
[2024-06-04] MEDS: PIPER/TAZO 3.375 GM 50 ML IV ×2 (13:56→21:06)
--- NOTE | 2024-06-04 15:08 | PC.SS ---
SS follow up note; Patient will have surgery today.
--- NOTE | 2024-06-04 16:22 | SUR.PHASEI ---
1614 To PACU able to lift head off of pillow, following simple commands continue to monitor pt vital signs and status.
--- NOTE | 2024-06-04 16:38 | PD.SUROPNT ---
Date of Procedure 06/04/24 Pre Op Diagnosis Acute calculus cholecystitis Post Op Diagnosis Same with both acute and chronic cholecystitis Procedure Laparoscopic cholecystectomy Findings Patient was found to have acute on chronic cholecystitis as manifested by thickening of the gallbladder wall with edema Procedure Description After endotracheal anesthesia was given the patient was placed in supine position and the abdomen was prepped with chloroprep solution and draped in a sterile manner. After time out was performed I injected a few cc of of half percent Marcaine with epinephrine below the umbilicus and I made an incision for about 3 cm in length. The fascia was cleaned and Veress needle was inserted to create a pneumoperitoneum up to 15 mmHg. Then introduced a 12 mm trocar and a 10 mm camera through the fascia and I inspected the intra-abdominal organs as well as the gallbladder and the liver. Another 5 mm trocar was inserted in the epigastric region under direct vision after injecting some local anesthesia. At this time the patient was kept in reverse Trendelenburg position with the left lateral tilt. The third 5 mm trocar was inserted over the mid axillary line under direct vision and a Leonel and Geck grasper was used to hold the fundus of the gallbladder. The retraction was carried out by the special education educational assistant moving the fundus of the gallbladder towards the right shoulder of the patient to create enough traction. The fundus of the gallbladder was thickened and distended and could not be grasped easily. Therefore I used a toothed Graham Geck to grab the fundus. The gallbladder ruptured and leaked thick bile and it was decompressed with the suction tube. I placed a another 5 mm trocar in the midaxillary line just lateral to the rectus muscle under direct vision. I used a fenestrated grasper to retract the neck of the gallbladder laterally towards the patient's right hip. The Calot's triangle was exposed and I achieved the critical view of safety as follows: I dissected out the fatty tissue from the hepatocystic triangle and cleared this area. I also dissected inferior and posterior to the gallbladder to identify the cystic duct and the gallbladder wall. Then superiorly I dissected along the cystic plate up to lower one third third of the gallbladder to lift the gallbladder from the liver. At this time I confirmed that only 2 structures entering the gallbladder were cystic artery and the cystic duct. I could not see the cystic artery clearly but the cystic duct was seen. At this time I changed the epigastric port to a 12 mm trocar and used a large clip applicator to safely secure the cystic duct. The common duct was seen distally but no dissection was carried out around the duct. I did not see any need for operative cholangiogram in this patient. The cystic duct was clipped doubly and then divided and cystic artery coagulated with harmonic jose cruz on could not be easily isolated and clipped because of the extensive inflammation.. Then the gallbladder was removed from the liver bed using Harmonic jose cruz to control the small blood vessels as the dissection proceeded. Then the gallbladder was from the liver bed completely and delivered through the umbilical port using an Endopouch. The liver bed was coagulated with cautery to obtain satisfactory hemostasis. The trocars were pulled out from the abdominal cavity and the fascia at the umbilical incision was closed with interrupted 0 Ethibond. The epigastric incision which was a 12 mm trocar was closed with Sonny Ash device with Ethibond. Subcutaneous tissues was closed with 3-0 chromic and injected a few cc of half percent Marcaine with epinephrine and the skin was closed with interrupted 4-0 Monocryl subcuticular stitches at all the trocar sites. Dressing was applied with 2 x 2 and Tegaderm. Patient tolerated the procedure well and returned to recovery room in stable condition. Anesthesia GETA Pathology / specimen Other (Gallbladder and the stones) IVF Infused 600 Estimated Blood Loss 50 Condition Stable Disposition PACU Surgeon Onur French MD Surgical Staff Operation Date: 06/04/24 11:45 Case Staff Anesthesiologist: José Manuel Patterson RN First Assistant: Rosi Jarrett
[2024-06-04] MEDS: ACETAMINOPHEN IVPB 1,000 MG/100 ML VIAL 250 MG IV (17:20)
--- NOTE | 2024-06-04 17:20 | SUR.PHASEI ---
6328 Transfer to room 379 in stable condition no complaints no s/s of distress noted no change to abdomen dressings.
[2024-06-04] MEDS: KETOROLAC INJ 30 MG/ML VIAL IVP (21:07)
[2024-06-05] VITALS (7 sets, daily range): BP systolic 132–138; BP diastolic 73–83; PULSE 75–96; RESP 16–19; TEMP 35.9–36.6; O2SAT 92–97
[2024-06-05] MEDS: ACETAMINOPHEN IVPB 1,000 MG/100 ML VIAL 250 MG IV ×2 (00:45→05:20)
[2024-06-05] MEDS: SODIUM CHLORIDE 0.9% 1000 ML 1,000 ML 100 ML IV (05:20)
[2024-06-05 05:45] LABS: Basophils % (Auto) 0 % (0-2.5); Eosinophils % (Auto) 0 % (0-10); Hematocrit 39.5 % (41.0-53.0); Hemoglobin 13.1 g/dL (13.5-16.0); Immature Granulocytes % (Auto) 0 % (0-0); Immature Granulocytes Auto 0.06 Thou/mm3 (0.00-0.00); Lymphocytes # (Auto) 1.3 Thou/mm3 (1.0-4.8); Lymphocytes % (Auto) 8 % (10-50); Mean Corpuscular HGB Conc 33.2 g/dl (31.0-37.0); Mean Corpuscular Hemoglobin 27.9 pg (25.0-35.0); Mean Corpuscular Volume 84 fL (80-100); Monocytes # (Auto) 0.5 Thou/mm3 (0.0-0.8); Monocytes % (Auto) 3 % (0-12); Neutrophils # (Auto) 14.5 Thou/mm3 (1.8-7.7); Neutrophils % (Auto) 88 % (37-80); Nucleated Red Blood Cell % 0 /100 WBC (0); Platelet Count 303 Thou/mm3 (140-440); RDW Standard Deviation 41.4 fL (35.1-43.9); Red Blood Count 4.69 Miln/mm3 (4.50-5.90); White Blood Count 16.4 Thou/mm3 (3.8-10.6)
[2024-06-05] MEDS: PIPER/TAZO 3.375 GM 50 ML IV (05:45)
[2024-06-05 06:11] LABS: Alanine Aminotransferase 59 U/L (10-49); Albumin, Serum 4.7 gm/dL (3.5-5.0); Alkaline Phosphatase 114 U/L (46-116); Aspartate Amino Transferase 31 U/L (0-34); Bilirubin,Direct 0.2 mg/dL (0.0-0.3); Bilirubin,Total 0.7 mg/dL (0.3-1.2); Total Protein 7.5 gm/dL (5.7-8.2)
[2024-06-05] MEDS: hydrALAZINE HCL 25 MG TABLET PO (08:56)
[2024-06-05] MEDS: amLODIPine BESYLATE 5 MG TABLET 10 MG PO (08:56)
[2024-06-05] MEDS: Lisinopril 20 MG TABLET 40 MG PO (08:56)
--- NOTE | 2024-06-05 09:54 | ESPR_ITS ---
<Statement entered by Frederick Bowden MD - 06/05/24 15:05> Patient was seen and examined at the bedside. Patient was consulted for blood pressure management postsurgery. Blood pressure remains stable on 3 antihypertensives. Patient was stable from medical standpoint point to be discharged on lisinopril and amlodipine only and discontinued hydralazine given risk of hypotension. Medicine team will sign off from the case today. Surgeon, Dr. Hardy was updated regarding the he plan of blood pressure control. All labs and orders were reviewed. I saw and examined the patient, and I agree with current management stated by Dr Gualberto MD,PGY1. Plan of care was discussed with the attending physician and resident physician. Disclaimer: Despite multiple revisions, due to the dictation software being used, the document bellow may not be free of grammatical errors including phonetic/typographic errors. However, this does not deter from our commitment to providing health care in the patient's best interest in mind. Dr. Dennise MD, PGY 2 Documentation for date of: 06/05/24 Subjective Subjective Interval history: Patient is a 49-year-old male with a past medical history of hypertension was nonadherent to medication-Home medication of cholecystitis, s/p cholecystectomy (06/04/2023). IM team consulted for hypertensive urgency. No overnight events reported for patient. Patinet examinded at bedside. Minimal drainage from gallbladder drain. Patient denied pyrexia or chills overnight. Patient denied chest pain or dyspnea. Patient denied pain, well controlled with pain management from primary surgical team. Patinet denied dizziness, headaches or double vision. Exam Vital Signs Temp Pulse Resp BP Pulse Ox O2 Del Method O2 Flow Rate 97.1 F 75 18 135/83 H 92 L Room Air 2 06/05/24 07:51 06/05/24 08:56 06/05/24 07:51 06/05/24 08:56 06/05/24 07:51 06/05/24 07:51 06/05/24 04:51 Narrative Exam General Appearance: Alert & Oriented X3, well-nourished male who is lying in bed in no acute distress HEENT: Skull symmetrical and atraumatic. Conjunctivae pin and moist. Pupils equal, round, reactive to light and accommodation (PERRL). External ear without lesion or discharge. Straight, nares patient, mucosa pink, no discharge. No thyroid nodule appreciated. No cervical lymphadenopathy. Cardio: Normal Rate and Rhythm with S1 and S2 heart sounds. No murmurs or extra heart sounds auscultated. No bruits on carotid auscultation. No peripheral edema or cyanosis. Lungs: Symmetric with good expansion. Chest and back non-tender. Breath sounds vesicular without crackles, wheezing or rhonchi Abdomen: Non-tender, Non-distended, Normal Reactive Bowel Sounds Neuro: Alert, cooperative, oriented to person, place, and time. Speech clear. CN grossly intact. Upper motor strength 5/5 and Lower motor strength 5/5. Sensation intact. Objective Labs 06/05/24 05:17 06/03/24 16:49 Labs: Laboratory Results - last 24 hr 06/05/24 05:17 WBC 16.4 H RBC 4.69 Hgb 13.1 L Hct 39.5 L MCV 84 MCH 27.9 MCHC 33.2 RDW Std Deviation 41.4 Plt Count 303 Neut % (Auto) 88 H Lymph % (Auto) 8 L [place] % (Auto) 3 Eos % (Auto) 0 Baso % (Auto) 0 Neut # (Auto) 14.5 H Lymph # (Auto) 1.3 [place] # (Auto) 0.5 Eos # (Auto) 0.0 Baso # (Auto) 0.0 Immature Gran # (Auto) 0.06 H Absolute Nucleated RBC 0.00 Immature Gran % 0 Nucleated RBC % 0 Total Bilirubin 0.7 Direct Bilirubin 0.2 AST 31 ALT 59 H Alkaline Phosphatase 114 Total Protein 7.5 Albumin 4.7 D Quality Measures Quality Measures none Assessment & Plan Assessment Current Active Medications: Generic Name Dose Route Start Last Admin Trade Name Freq PRN Reason Stop Dose Admin Amlodipine Besylate 10 mg 06/04/24 06:45 06/05/24 08:56 Amlodipine Besylate 5 Mg Tablet PO 07/04/24 06:44 10 mg QDAY JOSE Administration Hydralazine HCl 25 mg 06/03/24 22:45 06/05/24 08:56 Hydralazine Hcl 25 Mg Tablet PO 07/03/24 22:44 25 mg BID JOSE Administration Hydralazine HCl 10 mg 06/04/24 10:28 Hydralazine Inj 20 Mg/Ml Vial IV 07/04/24 10:29 Q6H PRN SBP>170/95 Piperacillin/Tazobactam/Dextrose 50 mls @ 12.5 mls/hr 06/04/24 14:00 06/05/24 05:45 Zosyn IV 06/11/24 05:59 12.5 mls/hr Q8HR JOSE Administration Acetaminophen 1,000 mg in 100 mls @ 250 mls/hr 06/04/24 16:15 06/05/24 05:20 Ofirmev Inj IV 06/05/24 12:23 250 mls/hr Q6HR JOSE Administration Sodium Chloride 1,000 mls @ 100 mls/hr 06/04/24 17:33 06/05/24 05:20 Ns IV 07/04/24 17:32 100 mls/hr .Q10H JOSE Administration Ketorolac Tromethamine 30 mg 06/04/24 17:33 06/04/24 21:07 Ketorolac Inj 30 Mg/Ml Vial IVP 06/09/24 17:32 30 mg Q6HR PRN Administration PAIN 1-6 (mild-mod Lisinopril 40 mg 06/03/24 22:40 06/05/24 08:56 Lisinopril 20 Mg Tablet PO 07/03/24 22:39 40 mg QDAY JOSE Administration Morphine Sulfate 5 mg 06/04/24 01:08 06/04/24 01:43 Morphine Sulf Inj 10 Mg/Ml Vial IVP 06/08/24 20:48 5 mg Q4HR PRN Administration PAIN SCALE 4-6 (Moderate Protocol Ondansetron HCl 4 mg 06/03/24 20:49 Ondansetron Inj 2 Mg/Ml Inj 2 Ml IV 07/03/24 20:48 Q4HR PRN NAUSEA OR VOMITING Plan Alfonso Bhatia is a 49-year-old Kiswahili-speaking male with a PMHx of hypertension who presented to the ED with 3 days of epigastric and RUQ pain radiating to the back with associated nausea. ED workup revealed leukocytosis of 17.2 and gallbladder US showed acute calculus cholecystitis pattern. Admitted by General Surgery for cholecystectomy and consulted internal medicine for management of hypertensive urgency. #Hypertensive urgency #History of essential hypertension On admission BP range 171/96 to 213/122. Patient stated home medication is Lisinopril 10 mg Qday but has been non-adherent to medication. Patient is understanding of need to continue anti-hypertensive medication as outpatient as there are usually minimal symptoms with hypertension. Plan: ? Continue Lisinopril 40 mg p.o. daily ? Continue Amlodipine 10 mg p.o. daily ? Stop Hydralazine 25 mg p.o. twice daily -IM signing off, please continue Lisinopril 40 mg PO Daily and Amlodipine 10 mg daily upon discharge. Please follow up with primary care provider for any changes need to be made as outpatient. #Cholecystitis s/p cholecystectomy Primary team, surgery. Hospital management: Disposition: likely D/C patient today by surgery Fluids: not indicated Diet: regular diet Lines: peripheral CODE STATUS: full code - The patient's plan was discussed with attending Dr. Andrew and senior residents Dr. Dennise Burciaga MD PGY1 Internal Medicine Attending Provider Attestation/Addendum I attest that I was physically present for the evaluation, physical examination, lab and imaging review of the patient with the residents. I discussed the case with the residents and agree with the findings and plans of care as documented above. Patient underwent Cholecystectomy with general surgery. Blood pressure has been stable on oral medications. Recommended Continuation of Amlodipine 10 and Lisinopril 40 daily on discharge. Also advised to follow up with PCP for blood pressure evaluation and adjustment of antihypertensive dosing. We will sign off the case. Mary Andrew MD
--- NOTE | 2024-06-05 10:54 | PD.SURPROG ---
Documentation for date of: 06/05/24 Subjective Subjective Brief History: History of present was revealed that the patient was in his usual health until 3 days ago when he started having pain in the epigastric region radiating to the back. Patient had no vomiting but he was nauseated and could not eat well. He has had a similar pain 3 years ago and came to the emergency room and was told that he had gastritis. Patient gives history of gallstones and his mother. Patient denies any history of fever or chills. Patient's past medical history consist of hypertension and obesity Narrative: Patient is feeling better and does not have much pain. He is tolerating diet and using very minimal pain medication Exam Vital Signs Temp Pulse Resp BP Pulse Ox O2 Del Method O2 Flow Rate 97.1 F 75 18 135/83 H 92 L Room Air 2 06/05/24 07:51 06/05/24 08:56 06/05/24 07:51 06/05/24 08:56 06/05/24 07:51 06/05/24 07:51 06/05/24 04:51 Vital signs are normal including the blood pressure Routine Abdominal Exam Comments: Abdomen shows very minimal drainage and Nikolay-Fields Results Results: Laboratory Laboratory Narrative: Laboratory shows WBC around 16,000 probably due to surgery. Liver enzymes are normal Assessment & Plan Assessment Additional comments: Impression: Stable postoperative course Plan Plan: We shall discharge the patient today and follow him up in my clinic on Saturday for drain removal. Procedures Procedures Laparoscopic cholecystectomy
--- NOTE | 2024-06-05 17:05 | ESDS_ITS ---
RE: DEBBIE RODRIGUEZ : 1975 DATE OF ADMISSION: 06/04/2024 DATE OF DISCHARGE: 06/05/2024 12:15 DATE OF ADMISSION: 06/03/2024 DATE OF DISCHARGE: 06/05/2024 FINAL DIAGNOSES: 1. Acute calculus cholecystitis. 2. Hypertension, poorly controlled. 3. Obesity. PROCEDURE DONE: Laporascopic appendectomy. REASON FOR ADMISSION: This patient was admitted through the emergency room with abdominal pain of 3 days' duration associated with significant tenderness with right upper quadrant and WBC elevation of up to 17,000. The patient also had uncontrolled blood pressure with systolic around 200. Hospital consultation was obtained to control the blood pressure. The patient was then taken to the operating room on 06/04/2024. He underwent laparoscopic cholecystectomy. Postoperative course was uneventful and the patient is being discharged with Vicodin #20 for pain control. The patient will be seen in my office on 06/08/2024 for removal of the Nikolay-Fields drain and further followup. DT: 11:02:12 TT: 17:03:00 Ref: [id number] - TID: [id number]
== END 2024-06-05 12:15 | disposition home or self-care (01) | DRG 263 ==
LOC: SERX 18:55 → SERHOLD 21:44 → S3SX 06-04 01:28 → SERHOLD 06-04 08:40
PROVIDERS: Nurse Practitioner Primary Care; Admitting Provider Surgery; Emergency Provider Emergency Medicine; PCP Family Medicine; Visit Provider Surgery
PROC: 0FT44ZZ Resection of Gallbladder, Percutaneous Endoscopic Approach (ICD-10-PCS; CPT 47562; principal; 2024-06-04 11:30)
DX: K80.12 Calculus of gallbladder with acute and chronic cholecystitis without obstruction (principal); I10 Essential (primary) hypertension; E66.01 Morbid (severe) obesity due to excess calories; Z68.35 Body mass index [BMI] 35.0-35.9, adult; I16.0 Hypertensive urgency
CPT/HCPCS: 36415; 71046; 74176; 76705; 80053; 80076; 80307; 81001; 83690; 84484; 85025; 93005; 96365; 96375; 99285; A4217; A4649; G0378; J0131; J0360; J1100; J1885; J2250; J2270; J2405; J2543; J2704; J3010; J3490; J7030; J7050; A9270